=== PATIENT | male | born 1940 | race Caucasian/White ===

== ENCOUNTER 2018-07-21 09:34 | Inpatient (IN) | payer MEDICARE, BC ==
[2018-07-21 10:53] LABS: ADD MAN DIFF? NO
[2018-07-21 10:56] LABS: WHITE BLOOD COUNT 5.4 10^3/ul (4.8-10.8)
[2018-07-21 10:56] LABS: BASOPHILS % 0.6 % (0.0-2.0); EOSINOPHILS # 0.2 10^3/ul (0.0-0.5); EOSINOPHILS % 2.8 % (0.0-7.0); HEMOGLOBIN 12.2 g/dl (14.0-18.0); LYMPHOCYTES # 1.1 10^3/ul (0.8-2.9); LYMPHOCYTES % 20.4 % (15.0-51.0); MEAN CORPUSCULAR HEMOGLOBIN 30.3 pg (29.0-33.0); MEAN CORPUSCULAR HGB CONC 29.8 g/dl (32.0-37.0); MEAN CORPUSCULAR VOLUME 101.7 fl (82.0-101.0); MEAN PLATELET VOLUME 11.8 fl (7.4-10.4); MONOCYTE # 0.5 10^3/ul (0.3-0.9); MONOCYTES % 8.7 % (0.0-11.0); NEUTROPHIL # 3.6 10^3/ul (1.6-7.5); NEUTROPHILS % 66.8 % (39.0-77.0); PLATELET COUNT 129 10^3/UL (140-415); POSITIVE DIFF @See below; RED BLOOD COUNT 4.03 10^6/ul (4.70-6.10); RED CELL DISTRIBUTION WIDTH 15.5 % (11.5-14.5)
[2018-07-21 10:59] LABS: INR 0.93; PROTIME 12.6 Sec (11.9-14.9)
[2018-07-21 11:00] LABS: PARTIAL THROMBOPLASTIN TIME 31.6 Sec (23.0-35.0)
[2018-07-21 11:02] LABS: ALANINE AMINOTRANSFERASE 18 IU/L (13-69); ALBUMIN/GLOBULIN RATIO 1.25; ALKALINE PHOSPHATASE 113 IU/L (42-121); ANION GAP 18 (5-13); ASPARTATE AMINO TRANSFERASE 18 IU/L (15-46); BLOOD UREA NITROGEN 61 mg/dl (7-20); CALCIUM 9.1 mg/dl (8.4-10.2); CARBON DIOXIDE 27 mmol/L (21-31); CHLORIDE 98 mmol/L (97-110); CREATININE 9.09 mg/dl (0.61-1.24); GLUCOSE 202 mg/dl (70-220); POTASSIUM 5.3 mmol/L (3.5-5.1); SODIUM 143 mmol/L (135-144); TOTAL PROTEIN 7.2 g/dl (6.1-8.1)
[2018-07-21 11:14] LABS: TROPONIN-I 0.042 ng/ml (0.000-0.120)
[2018-07-21 12:50] LABS: ANISOCYTOSIS 1+ (0-0); BAND NEUTROPHILS #M 0.2 10^3/ul (0.0-0.6); BAND NEUTROPHILS % (M) 4 % (0-4); BURR CELLS 1+ (0-0); EOSINOPHILS % (M) 3 % (0-7); GIANT THROMBO% (M) 1 % (0-0); LYMPHOCYTES #M 0.4 10^3/ul (0.8-2.9); LYMPHOCYTES % (M) 9 % (15-51); MICROCYTOSIS 1+ (0-0); MONOCYTE #M 0.5 10^3/ul (0.3-0.9); MONOCYTES % (M) 10 % (0-11); OVALOCYTES 1+ (0-0); PLASMA CELLS #M 0.4 10^3/ul (0.0-0.0); PLASMAC%(M) 8 % (0); PLATELET ESTIMATE INCREASED; POLYCHROMASIA 3+ (0-0); SEG NEUT #M 3.6 10^3/ul (1.6-7.5); SEGMENTED NEUTROPHILS (M) % 66 % (39-77); SMUDGE%M 6 % (0-0); TEAR DROP CELLS 1+ (0-0)
[2018-07-21] MEDS ORDERED: ACETAMINOPHEN 325 MG TAB PO (13:30)
[2018-07-21] MEDS ORDERED: ONDANSETRON 4 MG INJ IV ×2 (13:30→17:30)
[2018-07-21] MEDS ORDERED: morphine 4 MG/ML VIAL IV (17:30)
[2018-07-21] MEDS ORDERED: NACL 0.9% 3 ML SYG IV (17:30)
[2018-07-21] MEDS ORDERED: ZOLPIDEM 5 MG TAB PO (17:30)
[2018-07-21] MEDS ORDERED: DOCUSATE SODIUM 100 MG CAP PO (17:30)
[2018-07-21] MEDS: CALCIUM ACETATE 667 MG CAP PO (17:56)
[2018-07-21] MEDS: SEVELAMER CARBONATE 0.8 GM PKT PO (17:57)
[2018-07-21] MEDS: INSULIN ASPART [NOVOLOG] 3 ML PEN SC ×3 (17:58→20:55)
[2018-07-21] MEDS ORDERED: GLUCAGON 1 MG INJ IM (18:00)
[2018-07-21] MEDS ORDERED: GLUCOSE GEL 15 GRAM TUBE BUCCAL (18:00)
[2018-07-21] MEDS ORDERED: GLUCOSE GEL 15 GRAM TUBE PO ×2 (18:00)
[2018-07-21] MEDS ORDERED: DEXTROSE 50% 50 ML SYRINGE IV ×2 (18:00)
[2018-07-21 18:33] LABS: HEPATITIS B SURFACE ANTIGEN NEGATIVE (NEGATIVE)
[2018-07-21] MEDS: INSULIN GLARGINE [LANTus] (100 UNITS/ML) SYG SC (20:52)
[2018-07-21] MEDS ORDERED: NON-FORMULARY/PATIENT OWN MED (Rosuvastatin Calcium* (Crestor*) 10 MG) PO (21:00)
[2018-07-21] MEDS ORDERED: HEPARIN 5,000 UNIT/1 ML VIAL SC (21:00)
[2018-07-21] MEDS: HEPARIN 1000 UNITS/ML 10 ML INJ CATHETER (22:54)
[2018-07-22] MEDS: TAMSULOSIN (SR) 0.4 MG CAP PO ×2 (00:11→21:41)
[2018-07-22] MEDS: ACETAMINOPHEN 325 MG TAB PO (00:12)
[2018-07-22] MEDS: DUTASTERIDE 0.5 MG CAP PO ×2 (00:12→21:00)
[2018-07-22] MEDS: CALCIUM CARBONATE 1.25 GM TAB PO ×4 (00:13→21:43)
[2018-07-22] MEDS: MONTELUKAST 10 MG TAB PO ×2 (00:13→21:43)
[2018-07-22] MEDS: ATORVASTATIN 10 MG TAB PO ×2 (00:13→21:42)
[2018-07-22] MEDS: APIXABAN 5 MG TABLET PO ×3 (00:14→21:43)
[2018-07-22] MEDS: MINOXIDIL 10 MG TAB PO ×2 (00:14→21:42)
[2018-07-22] MEDS: ACCU-CHEK XX (02:09)
[2018-07-22 05:35] LABS: ADD MAN DIFF? NO
[2018-07-22 05:47] LABS: BASOPHILS % 0.5 % (0.0-2.0); EOSINOPHILS # 0.2 10^3/ul (0.0-0.5); EOSINOPHILS % 3.6 % (0.0-7.0); HEMATOCRIT 40.7 % (42.0-52.0); HEMOGLOBIN 12.7 g/dl (14.0-18.0); LYMPHOCYTES # 1.3 10^3/ul (0.8-2.9); LYMPHOCYTES % 21.4 % (15.0-51.0); MEAN CORPUSCULAR HEMOGLOBIN 30.6 pg (29.0-33.0); MEAN CORPUSCULAR HGB CONC 31.2 g/dl (32.0-37.0); MEAN CORPUSCULAR VOLUME 98.1 fl (82.0-101.0); MEAN PLATELET VOLUME 11.5 fl (7.4-10.4); MONOCYTE # 0.7 10^3/ul (0.3-0.9); MONOCYTES % 10.9 % (0.0-11.0); NEUTROPHIL # 3.8 10^3/ul (1.6-7.5); NEUTROPHILS % 62.6 % (39.0-77.0); PLATELET COUNT 124 10^3/UL (140-415); POSITIVE DIFF @See below; RED BLOOD COUNT 4.15 10^6/ul (4.70-6.10); RED CELL DISTRIBUTION WIDTH 15.5 % (11.5-14.5)
[2018-07-22 06:08] LABS: ANION GAP 17 (5-13); BLOOD UREA NITROGEN 36 mg/dl (7-20); CALCIUM 8.7 mg/dl (8.4-10.2); CARBON DIOXIDE 30 mmol/L (21-31); CHLORIDE 93 mmol/L (97-110); CREATININE 6.07 mg/dl (0.61-1.24); GLUCOSE 95 mg/dl (70-220); MAGNESIUM 2.2 mg/dl (1.7-2.5); PHOSPHORUS 3.4 mg/dl (2.5-4.9); POTASSIUM 4.8 mmol/L (3.5-5.1); SODIUM 140 mmol/L (135-144)
[2018-07-22 06:24] LABS: FREE THYROXINE INDEX (Calc) 2.79 ug/ml (0.65-3.89); T3 UPTAKE 36.2 % (23.5-40.5); T4 (THYROXINE) 7.7 ug/dl (5.5-11.0)
[2018-07-22] MEDS: HYDROCODONE/APAP (5/325) TAB PO (06:44)
[2018-07-22 07:51] LABS: HEMOGLOBIN A1C 5.3 % (0-5.9)
[2018-07-22] MEDS: INSULIN ASPART [NOVOLOG] 3 ML PEN SC ×7 (08:00→21:40)
[2018-07-22] MEDS: ASPIRIN 81 MG TAB PO (08:28)
[2018-07-22] MEDS: AMLODIPINE 10 MG TAB PO (08:28)
[2018-07-22] MEDS: CALCIUM ACETATE 667 MG CAP PO ×3 (08:28→17:28)
[2018-07-22] MEDS: SEVELAMER CARBONATE 0.8 GM PKT PO ×3 (08:35→17:28)
[2018-07-22] MEDS: INSULIN GLARGINE [LANTus] (100 UNITS/ML) SYG SC (21:40)
[2018-07-22] MEDS ORDERED: morphine LIQ (10 MG/5 ML) CUP PO (22:00)
[2018-07-23] MEDS: ACCU-CHEK XX ×2 (02:00→02:35)
[2018-07-23 05:13] LABS: ADD MAN DIFF? NO
[2018-07-23 05:16] LABS: BASOPHILS % 0.4 % (0.0-2.0); EOSINOPHILS # 0.2 10^3/ul (0.0-0.5); EOSINOPHILS % 3.8 % (0.0-7.0); HEMATOCRIT 37.4 % (42.0-52.0); HEMOGLOBIN 11.7 g/dl (14.0-18.0); LYMPHOCYTES # 1.3 10^3/ul (0.8-2.9); LYMPHOCYTES % 23.7 % (15.0-51.0); MEAN CORPUSCULAR HEMOGLOBIN 30.4 pg (29.0-33.0); MEAN CORPUSCULAR HGB CONC 31.3 g/dl (32.0-37.0); MEAN CORPUSCULAR VOLUME 97.1 fl (82.0-101.0); MEAN PLATELET VOLUME 11.1 fl (7.4-10.4); MONOCYTE # 0.6 10^3/ul (0.3-0.9); NEUTROPHIL # 3.2 10^3/ul (1.6-7.5); NEUTROPHILS % 60.7 % (39.0-77.0); PLATELET COUNT 111 10^3/UL (140-415); POSITIVE DIFF @See below; RED BLOOD COUNT 3.85 10^6/ul (4.70-6.10); RED CELL DISTRIBUTION WIDTH 15.1 % (11.5-14.5)
[2018-07-23 05:16] LABS: WHITE BLOOD COUNT 5.3 10^3/ul (4.8-10.8)
[2018-07-23 05:38] LABS: ANION GAP 11 (5-13); BLOOD UREA NITROGEN 52 mg/dl (7-20); CALCIUM 8.5 mg/dl (8.4-10.2); CARBON DIOXIDE 28 mmol/L (21-31); CHLORIDE 97 mmol/L (97-110); CREATININE 8.06 mg/dl (0.61-1.24); GLUCOSE 118 mg/dl (70-220); POTASSIUM 5.6 mmol/L (3.5-5.1); SODIUM 136 mmol/L (135-144)
[2018-07-23] MEDS: INSULIN ASPART [NOVOLOG] 3 ML PEN SC ×7 (08:00→20:39)
[2018-07-23] MEDS: SEVELAMER CARBONATE 0.8 GM PKT PO ×3 (08:37→17:58)
[2018-07-23] MEDS: CALCIUM ACETATE 667 MG CAP PO ×3 (08:38→17:57)
[2018-07-23] MEDS: ASPIRIN 81 MG TAB PO (08:38)
[2018-07-23] MEDS: APIXABAN 5 MG TABLET PO (08:38)
[2018-07-23] MEDS: CALCIUM CARBONATE 1.25 GM TAB PO ×3 (08:38→20:40)
[2018-07-23] MEDS: AMLODIPINE 10 MG TAB PO (08:38)
[2018-07-23] MEDS: HEPARIN 1000 UNITS/ML 10 ML INJ CATHETER (14:04)
[2018-07-23] MEDS: ATORVASTATIN 10 MG TAB PO (20:40)
[2018-07-23] MEDS: TAMSULOSIN (SR) 0.4 MG CAP PO (20:41)
[2018-07-23] MEDS: MINOXIDIL 10 MG TAB PO (20:41)
[2018-07-23] MEDS: MONTELUKAST 10 MG TAB PO (20:41)
[2018-07-23] MEDS: INSULIN GLARGINE [LANTus] (100 UNITS/ML) SYG SC (21:08)
[2018-07-23] MEDS: DUTASTERIDE 0.5 MG CAP PO (22:23)
[2018-07-24] MEDS: ACCU-CHEK XX (02:00)
[2018-07-24] MEDS: HYDROCODONE/APAP (5/325) TAB PO ×2 (03:32→17:22)
[2018-07-24 05:50] LABS: ADD MAN DIFF? NO
[2018-07-24 05:55] LABS: BASOPHIL # 0.1 10^3/ul (0.0-0.1); BASOPHILS % 0.9 % (0.0-2.0); EOSINOPHILS # 0.2 10^3/ul (0.0-0.5); EOSINOPHILS % 3.3 % (0.0-7.0); HEMATOCRIT 39.8 % (42.0-52.0); HEMOGLOBIN 12.4 g/dl (14.0-18.0); LYMPHOCYTES % 17.6 % (15.0-51.0); MEAN CORPUSCULAR HEMOGLOBIN 30.5 pg (29.0-33.0); MEAN CORPUSCULAR HGB CONC 31.2 g/dl (32.0-37.0); MEAN PLATELET VOLUME 11.7 fl (7.4-10.4); MONOCYTE # 0.7 10^3/ul (0.3-0.9); MONOCYTES % 11.9 % (0.0-11.0); NEUTROPHIL # 3.6 10^3/ul (1.6-7.5); NEUTROPHILS % 65.6 % (39.0-77.0); PLATELET COUNT 121 10^3/UL (140-415); POSITIVE DIFF @See below; RED BLOOD COUNT 4.06 10^6/ul (4.70-6.10); RED CELL DISTRIBUTION WIDTH 14.8 % (11.5-14.5)
[2018-07-24 05:55] LABS: WHITE BLOOD COUNT 5.5 10^3/ul (4.8-10.8)
[2018-07-24 06:28] LABS: ANION GAP 9 (5-13); BLOOD UREA NITROGEN 39 mg/dl (7-20); CALCIUM 9.4 mg/dl (8.4-10.2); CARBON DIOXIDE 29 mmol/L (21-31); CHLORIDE 100 mmol/L (97-110); CREATININE 6.45 mg/dl (0.61-1.24); GLUCOSE 116 mg/dl (70-220); POTASSIUM 5.5 mmol/L (3.5-5.1); SODIUM 138 mmol/L (135-144)
[2018-07-24] MEDS ORDERED: LIDOCAINE 1% (MPF) 30 ML INJ (07:42)
[2018-07-24] MEDS ORDERED: GELATIN SIZE 100 SPONGE (07:42)
[2018-07-24] MEDS ORDERED: HEPARIN 1000 UNITS/ML 10 ML INJ (07:43)
[2018-07-24] MEDS ORDERED: THROMBIN 5000 UNIT VIAL (07:43)
[2018-07-24] MEDS: HEPARIN 1000 UNITS/ML 10 ML INJ IRR (07:50)
[2018-07-24] MEDS: LIDOCAINE 1% (MPF) 30 ML INJ INJ (07:50)
[2018-07-24] MEDS ORDERED: ROPIVACAINE 0.2% 20 ML VIAL (07:57)
[2018-07-24] MEDS ORDERED: MIDAZOLAM 1 MG/ML 2 ML INJ (07:57)
[2018-07-24] MEDS: CALCIUM ACETATE 667 MG CAP PO ×3 (08:00→17:19)
[2018-07-24] MEDS ORDERED: hydrALAzine 20 MG INJ IV (08:00)
[2018-07-24] MEDS: INSULIN ASPART [NOVOLOG] 3 ML PEN SC ×7 (08:00→21:22)
[2018-07-24] MEDS ORDERED: HYDROmorphONE 1 MG/5 ML IV SYRINGE IV ×3 (08:00)
[2018-07-24] MEDS ORDERED: MEPERIDINE 25 MG INJ IV (08:00)
[2018-07-24] MEDS ORDERED: ONDANSETRON 4 MG INJ IV (08:00)
[2018-07-24] MEDS ORDERED: DIPHENHYDRAMINE 50 MG INJ IV (08:00)
[2018-07-24] MEDS: SEVELAMER CARBONATE 0.8 GM PKT PO ×3 (08:00→17:19)
[2018-07-24] MEDS ORDERED: LABETALOL HCL 20MG INJ IV (08:00)
[2018-07-24] MEDS ORDERED: PROPOFOL 20 ML (08:26)
[2018-07-24] MEDS ORDERED: CEFAZOLIN 1 GM INJ ×2 (08:27→09:02)
[2018-07-24] MEDS: ASPIRIN 81 MG TAB PO (11:07)
[2018-07-24] MEDS: CALCIUM CARBONATE 1.25 GM TAB PO ×3 (11:07→21:12)
[2018-07-24] MEDS: AMLODIPINE 10 MG TAB PO (11:07)
[2018-07-24] MEDS: TAMSULOSIN (SR) 0.4 MG CAP PO (21:11)
[2018-07-24] MEDS: DUTASTERIDE 0.5 MG CAP PO (21:12)
[2018-07-24] MEDS: ATORVASTATIN 10 MG TAB PO (21:12)
[2018-07-24] MEDS: MONTELUKAST 10 MG TAB PO (21:12)
[2018-07-24] MEDS: APIXABAN 5 MG TABLET PO (21:12)
[2018-07-24] MEDS: MINOXIDIL 10 MG TAB PO (21:13)
[2018-07-24] MEDS: INSULIN GLARGINE [LANTus] (100 UNITS/ML) SYG SC (21:22)
[2018-07-25] MEDS: HYDROCODONE/APAP (5/325) TAB PO (00:43)
[2018-07-25] MEDS: ACCU-CHEK XX (00:49)
[2018-07-25] MEDS: INSULIN ASPART [NOVOLOG] 3 ML PEN SC ×4 (07:59→12:00)
[2018-07-25] MEDS: HEPARIN 1000 UNITS/ML 10 ML INJ CATHETER (10:26)
[2018-07-25] MEDS: SEVELAMER CARBONATE 0.8 GM PKT PO ×2 (10:39→14:10)
[2018-07-25] MEDS: CALCIUM ACETATE 667 MG CAP PO ×2 (10:39→14:10)
[2018-07-25] MEDS: CALCIUM CARBONATE 1.25 GM TAB PO ×2 (10:39→14:10)
[2018-07-25] MEDS: AMLODIPINE 10 MG TAB PO (10:40)
[2018-07-25] MEDS: ASPIRIN 81 MG TAB PO (10:40)
[2018-07-25] MEDS: APIXABAN 5 MG TABLET PO (10:40)
== END 2018-07-25 16:40 | disposition home or self-care (01) | DRG 264 ==
LOC: E/R 09:34 → 6WM 15:15 → MS3 13:13 → 6WM 23:36
PROC: 03170ZF Bypass Right Brachial Artery to Lower Arm Vein, Open Approach (ICD-10-PCS; principal; 2018-07-24 08:00)
PROC: 5A1D70Z Performance of Urinary Filtration, Intermittent, Less than 6 Hours Per Day (ICD-10-PCS; 2018-07-24 08:00)
DX: R00.1 Bradycardia, unspecified (principal); N18.6 End stage renal disease; I13.2 Hypertensive heart and chronic kidney disease with heart failure and with stage 5 chronic kidney disease, or end stage renal disease; Z68.41 Body mass index [BMI] 40.0-44.9, adult; T82.898A Other specified complication of vascular prosthetic devices, implants and grafts, initial encounter; E11.22 Type 2 diabetes mellitus with diabetic chronic kidney disease; I50.9 Heart failure, unspecified; Z99.2 Dependence on renal dialysis; E87.5 Hyperkalemia; N40.0 Benign prostatic hyperplasia without lower urinary tract symptoms; E78.5 Hyperlipidemia, unspecified; K21.9 Gastro-esophageal reflux disease without esophagitis; E66.01 Morbid (severe) obesity due to excess calories; I48.0 Paroxysmal atrial fibrillation; Z79.02 Long term (current) use of antithrombotics/antiplatelets; I48.91 Unspecified atrial fibrillation
CPT/HCPCS: 36415; 71045; 80048; 80053; 82962; 83036; 83735; 84100; 84436; 84443; 84479; 84484; 85025; 85610; 85730; 87081; 87340; 90935; 93005; 93306; 93970; 99285-25